=== PATIENT | female | born 1975 | race Hispanic/Latino ===

== ENCOUNTER 2021-01-10 17:29 | Emergency (ER) | payer SELFPAY ==
[~2021-01-10] VITALS: Ht 162.6 cm; Wt 52.2 kg
[2021-01-10] MEDS ORDERED: MILK OF MA2400 MG/10 PO (18:58)
[2021-01-10] MEDS ORDERED: ACETAMINOPHEN500 MG PO (18:58)
[2021-01-10] MEDS ORDERED: CEFDINIR300 MG PO (18:58)
[2021-01-10] MEDS ORDERED: FLEET ENEMA133 ML PR (18:58)
== END 2021-01-10 19:35 | disposition home or self-care (01) ==
LOC: FSED 18:00
DX: R10.11 Right upper quadrant pain (principal); N39.0 Urinary tract infection, site not specified; K59.00 Constipation, unspecified
CPT/HCPCS: 74176; 81003; 81025; 99283

== ENCOUNTER 2025-03-06 16:53 | Emergency (ER) | payer SELFPAY ==
[~2025-03-06] VITALS: Ht 162.6 cm; Wt 54.4 kg
[~2025-03-06 16:53] MED LIST: ACETAMINOPHEN500 MG PO; CEFDINIR300 MG PO; CEPHALEXIN500 MG PO; FLEET ENEMA133 ML PR; MILK OF MA2400 MG/10 PO
[2025-03-06 16:56] VITALS: TEMP 98.2
[2025-03-06 17:11] LABS: BASOPHILS % 0.4 % (0.0-1.0); EOSINOPHILS # (AUTO) 0.1 (0.0-0.4); EOSINOPHILS % 1.2 % (0.0-6.0); HEMATOCRIT 41.3 % (34.2-44.1); HEMOGLOBIN 14.4 g/dL (12.0-16.0); LYMPHOCYTES # (AUTO) 3.8 (1.0-3.2); LYMPHOCYTES % 38.4 % (18.0-39.1); MEAN CORPUSCULAR HGB CONC 34.9 g/dL (31-35); MONOCYTES # (AUTO) 0.7 (0.2-0.8); MONOCYTES % 6.7 % (4.4-11.3); NEUTROPHILS # (AUTO) 5.3 (2.1-6.9); NEUTROPHILS % 53.1 % (38.7-80.0); PLATELET COUNT 359 x10e3/uL (140-360); RED BLOOD COUNT 4.64 x10e6/uL (3.6-5.1); RED CELL DISTRIBUTION WIDTH 12.3 % (11.7-14.4); WHITE BLOOD COUNT 9.91 x10e3/uL (4.8-10.8)
[2025-03-06] MEDS ORDERED: SODIUM CHLORIDE FLUSH 10 ML SYR IV PRN (17:15)
[2025-03-06] MEDS: ONDANSETRON HCL INJ 2MG/ML 2ML 2 MG/ML VIAL IV STA (17:24)
[2025-03-06] MEDS: SODIUM CHLORIDE 0.9% 1000ML 1,000 ML IV ONE (17:24)
[2025-03-06 17:28] LABS: CLARITY,URINE CLOUDY (CLEAR); COLOR,URINE YELLOW (YELLOW)
[2025-03-06 17:29] LABS: BILIRUBIN,URINE NEGATIVE (NEGATIVE); GLUCOSE, URINE NEGATIVE (NEGATIVE); KETONES,URINE TRACE (NEGATIVE); LEUKOCYTE ESTERASE ,URINE SMALL (NEGATIVE); NITRITE,URINE NEGATIVE (NEGATIVE); PH,URINE 7 (5 - 7); PROTEIN,URINE DIPSTICK TRACE (NEGATIVE); URINE UROBILINOGEN 1 mg/dL (0.2 - 1)
[2025-03-06 17:32] VITALS: PULSE 71; RESP 16
[2025-03-06 17:41] LABS: ALBUMIN 4.3 g/dL (3.5-5.0); ALBUMIN/GLOBULIN RATIO 1.3 (0.8-2.0); ANION GAP 15.5 mmol/L (8-16); BILIRUBIN,TOTAL 0.7 mg/dL (0.2-1.2); CALCIUM 10.1 mg/dL (8.4-10.2); CREATININE, SERUM 0.76 mg/dL (0.57-1.11); POTASSIUM 3.5 mmol/L (3.5-5.1); TOTAL PROTEIN 7.7 g/dL (6.5-8.1)
[2025-03-06 17:48] LABS: AMORPHOUS SEDIMENT,URINE MODERATE; BACTERIA,URINE FEW /HPF; EPITHELIAL CELLS,URINE FEW /LPF
[2025-03-06] MEDS ORDERED: IOPAMIDOL 370 MG/ML 100 ML INFUS..BTL INJ ONE (17:49)
[2025-03-06] MEDS: KETOROLAC TROMETHAMINE 30 MG/ML VIAL IV STA (18:31)
[2025-03-07] MEDS ORDERED: PANTOPRAZOLE SO40 MG PO (01:26)
[2025-03-07] MEDS ORDERED: ONDANSETRON ODT4 MG SL (01:26)
[2025-03-07 01:37] VITALS: BP 161/76; O2SAT 100
== END 2025-03-07 01:32 | disposition home or self-care (01) ==
LOC: ER 18:03
DX: R10.33 Periumbilical pain (principal); K29.70 Gastritis, unspecified, without bleeding; R11.2 Nausea with vomiting, unspecified
CPT/HCPCS: 36415; 74177; 76830; 80053; 81001; 85025; 99283; J1885; J2405; J2470; J7030; Q9967; 76856